=== PATIENT | female | born 1995 | race Caucasian/White ===

== ENCOUNTER 2022-01-23 10:19 | Emergency (ER) | payer SELFPAY ==
[2022-01-23 10:37] VITALS: BP 127/85; PULSE 97; RESP 20; TEMP 36.7; O2SAT 100
--- NOTE | 2022-01-23 11:04 | ED.URI ---
HPI - URI/Sore Throat General Chief Complaint: Upper Respiratory Infection Stated Complaint: Vomiting/Cough Time Seen by Provider: 01/23/22 11:04 Source: patient, RN notes reviewed and old records reviewed Mode of arrival: ambulatory Limitations: no limitations History of Present Illness HPI Narrative: 26-year-old female who presents to [facility] with complaints of 9 day history of cough and some upper chest discomfort with cough and also has coughed so hard at times she has vomited. Patient reports that she has some upper epigastric discomfort and across her mid abdomen and she has had 3 emesis today causing her to have to leave work. Patient reports that she had normal bowel movement yesterday, she ate last night and has drank some water today. Patient denies any burning with urination or any CVA tenderness, states menses are irregular with last menses 4 months ago.Patient has had COVID vaccinations but has not had flu shot. MD elicited complaint: cough and other (nausea and vomiting) Onset (ago): day(s) (9 days of cough, today nausea and vomiting) Treatments prior to arrival: other (cough drops) Related Data Home Medications Medication Instructions Recorded Confirmed No Home Medications 01/23/22 01/23/22 Allergies Allergy/AdvReac Type Severity Reaction Status Date / Time No Known Allergies Allergy Unverified 01/23/22 10:44 Review of Systems Review of Systems: CONSTITUTIONAL: Denies fever, chills, or sweats. EYES: Denies visual changes, redness, or discharge. ENT: some clear rhinorrhea, congestion, no acute sore throat, or otalgia. CARDIOVASCULAR: Upper chest discomfort with cough,no palpitations, or edema. RESPIRATORY: positive for cough denies dyspnea. GASTROINTESTINAL: upper epigastric and mid abdomen discomfort, positive for nausea, vomiting, no diarrhea. GENITOURINARY: Denies dysuria or hematuria. SKIN: Denies rash or itching. MUSCULOSKELETAL: Denies back pain, joint pain, or myalgia. NEUROLOGIC: Denies headache, numbness, or weakness. PSYCHIATRIC: Denies anxiety or depression. All systems reviewed & are unremarkable except as noted in HPI and below PMFSH Past Medical History Medical History (Updated 01/24/22 @ 00:00 by Ellen Zayas) Irregular menses Social History Social History (Updated 01/23/22 @ 11:40 by Margareth Smallwood NP) Tobacco type: e-cigarettes/vaping Alcohol intake: current Alcohol use details: rare Substance use type: does not use Living arrangements: with family Gender identity (if verbalized by the patient): Female Comments At time of signature, agree with nursing past medical, surgical, social and family history. There is no relevant family history pertinent to the presenting complaint Exam Narrative: GENERAL: ill-appearing, well-nourished, and in no acute distress. HEAD: Normocephalic, atraumatic. EYES: PERRLA and EOMI. ENT: Nares minimal redness clear rhinorrhea no epistaxis. Mucous membranes moist.TM's normal with good light reflex, throat red with no lesions or exudates, no acute tonsil swelling. NECK: Supple.no lymphadenopathy CHEST: Clear to auscultation. No respiratory distress.cough non productive, SAO2 100% on room air no tachypnea or accessory muscle use. HEART: Regular rate and rhythm. No murmur heard. Normal peripheral pulses. ABDOMEN: Soft, tender epigastric and mid abdomen region, no McBurney point tenderness, nondistended, normal active bowel sounds. EXTREMITIES: Normal range of motion. No edema. SKIN: Warm, dry, no rash. NEURO: No focal deficits. Alert and oriented x3. Course Course Level of Care: Express Care Visit Vital Signs Vital signs: Vital Signs Temperature 36.7 C 01/23/22 10:37 Pulse Rate 97 01/23/22 10:37 Respiratory Rate 20 01/23/22 10:37 Blood Pressure 127/85 01/23/22 10:37 Pulse Oximetry 100 01/23/22 10:37 Temperature 36.7 C 01/23/22 10:37 Pulse Rate 97 01/23/22 10:37 Respiratory Rate 20 01/23/22 10
== END 2022-01-23 11:55 | disposition home or self-care (01) ==
PROVIDERS: Emergency Provider Registered Nurse
DX: R11.2 Nausea with vomiting, unspecified (principal); R05.9 Cough, unspecified; F17.290 Nicotine dependence, other tobacco product, uncomplicated
CPT/HCPCS: 81025; 87081; 87804; 87880; 99203; G0463

== ENCOUNTER 2025-04-19 17:42 | Emergency (ER) | payer OTHER, SELFPAY ==
--- NOTE | ~2025-04-19 | XR_ITS ---
EXAMINATION: XR ankle RT min 3V DATE: 04/19/2025 18:10 INDICATION: Lateral right ankle pain post injury TECHNIQUE: Anteroposterior, oblique, mortise, and lateral views of the right ankle were obtained. COMPARISON: None. FINDINGS: Alignment is normal. No fracture. Joint spaces are well maintained. No ankle joint effusion. Soft t issue swelling overlying the lateral malleolus. IMPRESSION: 1. No right ankle joint effusion or acute osseous abnormality. Reviewed, dictated and finalized at location A.
--- OUTSIDE RECORDS SUMMARY | 2025-04-19 17:46 | XMS_ITS | Continuity of Care Document ---
Author Organization [facility] Address [address] [facility] [place] [address] Phone Care Team Providers Care Bottle Label Inspector Name Role Phone Zackery Bokoer MD Unavailable Unavailable Allergies, Adverse Reactions, Alerts Substance Reaction Status Criticality Bleach (Sodium Hypochlorite) Hives / Skin Rash Active No Information Procedures Procedure Date OFFICE/OUTPATIENT VISIT, [facility] Advance Directives Directive Yes / No Effective Date File Name No Information Encounters Encounter Description Practice Location Reason(s) For Visit Diagnoses Date Provider Providers Copied on Encounter OFFICE/OUTPA TIENT VISIT, [facility], [address] [facility] [place] [id number], [place] tel:[phone] [facility] [email or web address] (chief complaint) HirsutismAmenorrhea Abnormal weight gain 5 Jhony Vizcarra. [address] [facility] [place], [id number] , [place]. tel:[phone] Family History Family Member Type Diagnosis Age At Onset Mother Problem lung CA from smoking, ? CAD, Brother Problem Alive and well Mother Problem CAD 62 Father Problem bladder CA remission Payers Payer name Insurance type Covered republican ID Authoriza tion(s) No Information Social History Type Description Quantity Date Captured Comments Alcohol Use Details No Caffeine Use Details Unknown Tobacco Use Status Smoker Smoking Status Former smoker Non-Smoking Tobacco Use Details : No Details Available : No Details Available Sex Female Vital Signs Date / Time: Height Weight BMI Pulse Rate Blood Pressure Temperature Respiratory Rate Body Surface Area Head Circumference BMI percentile Pulse Ox Inhaled Ox 2:22 PM 63.00 in 181.80 lbs 32.2 0 kg/m eter (2) 95 /min 130/88 mm[Hg] 97.4 F 16 /min Chief Complaint And Reason For Visit From encounter dated '04/03/2025 14:17'. [email or web address] (chief complaint). Description: Pt has hirsutism and irregular period. Pt has not had any period for almost 3 years .Pt had some occasional spotting only Pt denies any hair loss or acne. Pt has difficulty losing weight .Pt denies any chest pain .Pt has not seen MD for many years Plan Of Treatment Date Type Action Status No Information History Of Present Illness Encounter Date Complaint History Of Prese nt Illness [email or web address] Pt has hirsutism and irregular period. Pt has not had any period for almost 3 years .Pt had some occasional spotting only Pt denies any hair loss or acne. Pt has difficulty losing weight .Pt denies any chest pain .Pt has not seen MD for many years Instructions Date Instruction Additional Infor divina No Information Assessments Type Assessment Date assessment Hirsutism assessment Amenorrhea assessment Abnormal weight gain Mental Status Date Cognitive Assessment Orientation - [place] ed to time, place, person, situation.
--- OUTSIDE RECORDS SUMMARY | 2025-04-19 17:46 | XMS_ITS | Clinical Summary ---
Author Organization [facility] [address] [facility] Address [address] [place] [address] Care Team Providers Care Drum Tender Name Role Phone Unknown, Notinfile Primary Care Provider Unavail able Allergies No known active allergies Medications No known medications Active Problems No known active problems Social History Tobacco Use Types Packs/Day Years Used Date Smoking Tobacco: Never Assessed Comments Unknown Sex and Gender Information Value Date Recorded Sex Assigned at Not on file Legal Sex Female 2:09 PM ASSEMBLER CHASSIS Gender Identity Not on file Sexual Orientation Not on file Obstetrics History Last Filed Vital Signs Vital Sign Reading Time Taken Comments Blood Pressure 120/84 08/12/2024 6:33 PM ASSEMBLER CHASSIS Pulse 88 08/12/2024 6:33 PM ASSEMBLER CHASSIS Temperature 36.7 C (98 F) 08/12/2024 6:33 PM ASSEMBLER CHASSIS Respiratory Rate 17 08/12/2024 6:33 PM ASSEMBLER CHASSIS Oxygen Saturation 99% 08/12/2024 6:33 PM ASSEMBLER CHASSIS Inhaled Oxygen Concentration - - Weight 88.5 kg (195 lb) 08/12/2024 6:33 PM ASSEMBLER CHASSIS Height 160 cm (5' 3) 08/12/2024 6:33 PM ASSEMBLER CHASSIS Body Mass Index 34.54 08/12/2024 6:33 PM ASSEMBLER CHASSIS Plan of Treatment Health Maintenance Due Date Last Done Comments Cervical Cancer Screening 1993 Depression Screening 1993 Hepatitis C Screening 1993 DTaP/Tdap/Td Vaccine (1 - Tdap) 2004 Varicella Vaccines (1 of 2 - 13+ 2-dose series) 2006 Hepatitis B Screening 2011 Regular Well Visit/Exam 18-64 2011 HPV Vaccines (1 - 3-dose SCD M series) 2020 Influenza Vaccine (#1) 2025 Pneumococcal vaccine <65 Aged Out No longer eligible based on patient's age to complete this topic Care Teams Drum Tender Relationship Specialty Start Date End Date Unknown, Notinfile PCP - General 08/12/24
--- OUTSIDE RECORDS SUMMARY | 2025-04-19 17:46 | XMS_ITS | Referral Summary ---
Author Organization [address] Address [address] [place] [address] Care Team Providers Care Senior Instructional Designer Name Role Phone Unknown, Notinfcarmen Primary Care Provider Unavail able Allergies No known active allergies Medications No known medications Active Problems No known active problems Social History Tobacco Use Types Packs/Day Years Used Date Smoking Tobacco: Never Assessed Comments Unknown Sex and Gender Information Value Date Recorded Sex Assigned at Not on file Legal Sex Female 2:09 PM PORTFOLIO CONSULTANT Gender Identity Not on file Sexual Orientation Not on file Last Filed Vital Signs Vital Sign Reading Time Taken Comments Blood Pressure 120/84 08/12/2024 6:33 PM PORTFOLIO CONSULTANT Pulse 88 08/12/2024 6:33 PM PORTFOLIO CONSULTANT Temperature 36.7 C (98 F) 08/12/2024 6:33 PM PORTFOLIO CONSULTANT Respiratory Rate 17 08/12/2024 6:33 PM PORTFOLIO CONSULTANT Oxygen Saturation 99% 08/12/2024 6:33 PM PORTFOLIO CONSULTANT Inhaled Oxygen Concentration - - Weight 88.5 kg (195 lb) 08/12/2024 6:33 PM PORTFOLIO CONSULTANT Height 160 cm (5' 3) 08/12/2024 6:33 PM PORTFOLIO CONSULTANT Body Mass Index 34.54 08/12/2024 6:33 PM PORTFOLIO CONSULTANT Plan of Treatment Not on file Care Teams Senior Instructional Designer Relationship Specialty Start Date End Date Unknown, Sukumar PCP - General 08/12/24
--- OUTSIDE RECORDS SUMMARY | 2025-04-19 17:51 | XMS_ITS | Continuity of Care Document ---
Author Organization [facility] Address [address] [facility] [place] [address] Phone Care Team Providers Care Beach Patrol Lieutenant Name Role Phone Zackery Booker MD Unavailable Unavailable Allergies, Adverse Reactions, Alerts Substance Reaction Status Criticality Bleach (Sodium Hypochlorite) Hives / Skin Rash Active No Information Procedures Procedure Date OFFICE/OUTPATIENT VISIT, [facility] Advance Directives Directive Yes / No Effective Date File Name No Information Encounters Encounter Description Practice Location Reason(s) For Visit Diagnoses Date Provider Providers Copied on Encounter OFFICE/OUTPA TIENT VISIT, [facility], [address] [facility] [place], [id number], [place] tel:[phone] [facility] [email or web address] (chief complaint) HirsutismAmenorrhea Abnormal weight gain 5 Jhony Vizcarra. [address] [employer] [employer] [facility] [place], [id number] , [place]. tel:[phone] Family History Family Member Type Diagnosis Age At Onset Mother Problem lung CA from smoking, ? CAD, Brother Problem Alive and well Mother Problem CAD 62 Father Problem bladder CA remission Payers Payer name Insurance type Covered democrat ID Authoriza tion(s) No Information Social History [...] Mental Status Date Cognitive Assessment Orientation - [place] ed to time, place, person, situation.
[2025-04-19 17:53] VITALS: BP 125/88; PULSE 79; RESP 16; TEMP 36.6; O2SAT 100
--- NOTE | 2025-04-19 19:02 | ED.LOWEXIN ---
HPI - Extremity Injury (Lower) General Chief Complaint: Fall Stated Complaint: Fall Injury/Right Ankle Time Seen by Provider: 04/19/25 18:20 Source: patient and RN notes reviewed Mode of arrival: ambulatory Limitations: no limitations History of Present Illness HPI Narrative: 29-year-old female Presents Express Care complaining of injury to right ankle. 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 Patient says she did follow the ground however denies hitting her head, loss of consciousness, neck pain, back pain, or any other injuries besides her right ankle. Patient is not taking anything for pain. Patient denies any numbness, tingling. Patient is able to bear weight to her right leg. Patient denies significant past medical history. Related Data Home Medications ?Medication ?Instructions ?Recorded ?Confirmed ?Last Taken ?Type No Home Medications 01/23/22 01/23/22 Unknown History Allergies Allergy/AdvReac Type Severity Reaction Status Date / Time No Known Allergies Allergy Unverified 01/23/22 10:44 Review of Systems Review of Systems: CONSTITUTIONAL: Denies fever, chills, or sweats. EYES: Denies visual changes, redness, or discharge. ENT: Denies rhinorrhea, congestion, sore throat, or otalgia. CARDIOVASCULAR: Denies chest pain, palpitations, or edema. RESPIRATORY: Denies cough or dyspnea. GASTROINTESTINAL: Denies abdominal pain, nausea, vomiting, or diarrhea. GENITOURINARY: Denies dysuria or hematuria. SKIN: Denies rash, wound, or itching. MUSCULOSKELETAL: Denies back pain, joint pain, or myalgia. Positive for right ankle injury and swelling NEUROLOGIC: Denies headache, numbness, or weakness. PSYCHIATRIC: Denies anxiety or depression. All other systems reviewed are negative, except as documented in HPI. [facility] Past Medical History Medical History Irregular menses Social History Social History Tobacco type: e-cigarettes/vaping Alcohol intake: current Alcohol use details: rare Substance use type: does not use Living arrangements: with family Gender identity (if verbalized by the patient): Female Comments At the time of my signature, I reviewed and agree with the nursing past medical, surgical, social, and family history. There is no relevant family history pertinent to the patient complaint. Exam Narrative: GENERAL: This is a well-nourished, well-developed adult, in no apparent distress. They are non ill-appearing, nontoxic appearing. HEAD: normocephalic, atraumatic. EYES: Sclera clear/white. Vision is grossly intact. Conjunctiva normal. Extraocular movement intact. EARS: External ears normal Hearing grossly intact. NOSE: External nose normal THROAT: Mucous membranes moist NECK: Neck supple CARDIOVASCULAR: Regular rate and rhythm RESPIRATORY: Respiratory rate normal, respiratory effort nonlabored, no respiratory distress NEURO: awake, alert, and oriented to person, place and time. There were no obvious focal neurologic abnormalities. EXTREMITIES: Right ankle: No obvious deformity, bruising, redness. There is mild swelling to the lateral ankle. Mild tenderness to full range of motion. Tenderness to palpation to right lateral ankle. Capillary refill less than 3 seconds. Right pedal Pulse 2 +palpable. Normal sensation. Neurovascular status intact distal injury. Patient able to wiggle her toes. Negative Sanchez's test. BACK: Nontender without deformity. Course Course Emergency Course: Portions of this record may have been created with voice recognition software Level of Care: Express Care Visit Vital Signs Vital signs: Vital Signs Temperature 97.9 F 04/19/25 17:53 Pulse Rate 79 04/19/25 17:53 Respiratory Rate 16 04/19/25 17:53 Blood Pressure 125/88 04/19/25 17:53 Pulse Oximetry 100 04/19/25 17:53 Oxygen Delivery Room Air 04/19/25 17:53 Temperature 97.9 F 04/19/25 17:53 Pulse Rate 79 04/19/25 17:53 Respiratory Rate 16 04/19/25 17:53 Blood Pressure 125/88 04/19/25 17:53 Pulse Oximetry 100 04/19/25 17:53 Oxygen Delivery Room Air 04/19/25 17:53 Reviewed MDM - Extremity Injury (Lower) MDM Narrative Medical decision making narrative: X-ray right ankle shows no evidence of fracture or acute findings. Patient likely has right ankle sprain given mechanism of injury. Patient given Jacobo wrap for compression. Discussed physical exam findings. Advised supportive measures and signs/symptoms to go to the ER. Pt is appropriate for outpt treatment and f/u. Differential Diagnosis Differential diagnosis: Likely ankle sprain and strain, ankle fracture and other (Foot fracture) Imaging Data Radiologist's impression: ITS Impressions Ankle X-Ray 04/19/25 18:24 IMPRESSION: 1. No right ankle joint effusion or acute osseous abnormality. Critical Care Time Critical Care Time Critical Care Time: No Discharge Plan Discharge Clinical Impression: Injury of ankle, right Qualifiers: Encounter type: initial encounter Qualified Code(s): S99.911A - Unspecified injury of right ankle, initial encounter Patient Disposition: Home Condition: Stable Instructions: Ankle Sprain (ED) Additional Instructions: The x-ray of your right ankle is negative for any fractures or acute findings. Rest and elevate the leg; bear weight as tolerated Apply ice 15-20 minute intervals several times a day Keep it wrapped with JACOBO or use a soft ankle splint Motrin 600mg -800mg every 8 hours, alternate with Tylenol 1000mg every 8 hours as needed Follow up with your primary care provider or orthopedist 1 to 2 weeks if pain persist. Patient Language: Yakut Prescriptions: No Action No Home Medications ondansetron 4 mg tablet,disintegrating 4 mg PO Q6H PRN (Reason: nausea and vomiting) Qty: 14 0RF Follow-up/Referrals: Zackery Booker MD [Primary Care Provider] - Dayne Garza MD [Physician] - Time of Disposition: 18:35
== END 2025-04-19 18:41 | disposition home or self-care (01) ==
PROVIDERS: PCP Emergency Medicine
DX: S99.911A Unspecified injury of right ankle, initial encounter (principal); W17.2XXA Fall into hole, initial encounter; Y99.0 Civilian activity done for income or pay
CPT/HCPCS: 73610; 99213; G0463